=== PATIENT | female | born 1995 | race Two or more races ===

== ENCOUNTER 2020-07-11 09:22 | Emergency (ER) | payer SELFPAY ==
--- NOTE | 2020-07-11 10:54 | EDM.PDOC ---
ED HPI GENERAL MEDICAL PROBLEM - General Chief Complaint: Gastrointestinal Problem Stated Complaint: VOMITING ABDOMINAL PAIN Time Seen by Provider: 07/11/20 10:24 Source of Information: Reports: Patient History Limitations: Reports: No Limitations - History of Present Illness INITIAL COMMENTS - FREE TEXT/NARRATIVE: Patient is a 24-year-old female who presents today for nausea vomiting been present for the past few weeks. Patient presented today because she developed some right-sided flank pain. Patient denies any fever chills or urinary symptoms. Patient denies any recent travels or other complaints. - Related Data Allergies Allergy/AdvReac Type Severity Reaction Status Date / Time No Known Allergies Allergy Verified 07/11/20 11:30 Home Meds: Home Meds Ciprofloxacin [Ciprofloxacin HCl] 500 mg PO BID 7 Days #14 tab 07/11/20 [Rx] ED ROS GENERAL - Review of Systems Review Of Systems: See Below Constitutional: Reports: No Symptoms HEENT: Reports: No Symptoms Respiratory: Reports: No Symptoms Cardiovascular: Reports: No Symptoms Endocrine: Reports: No Symptoms GI/Abdominal: Reports: Nausea, Vomiting : Reports: No Symptoms Musculoskeletal: Reports: No Symptoms Skin: Reports: No Symptoms Neurological: Reports: No Symptoms Psychiatric: Reports: No Symptoms Hematologic/Lymphatic: Reports: No Symptoms Immunologic: Reports: No Symptoms ED EXAM, GENERAL - Physical Exam Exam: See Below Exam Limited By: No Limitations General Appearance: Alert, No Apparent Distress Eye Exam: Bilateral Eye: EOMI, PERRL Head: Atraumatic Respiratory/Chest: No Respiratory Distress, Lungs Clear, Normal Breath Sounds Cardiovascular: Regular Rate, Rhythm GI/Abdominal: Normal Bowel Sounds, Soft, Non-Tender Back Exam: CVA Tenderness (R) Extremities: Normal Range of Motion Neurological: Alert, Oriented, Normal Cognition, Normal Gait Course - Vital Signs Last Recorded V/S: Last Vital Signs Temp 97.4 F 07/11/20 09:55 Pulse 82 07/11/20 12:08 Resp 18 07/11/20 12:08 BP 110/71 07/11/20 12:08 Pulse Ox 96 07/11/20 12:08 - Orders/Labs/Meds Labs: Laboratory Tests 07/11/20 07/11/20 07/11/20 Range/Units 10:02 10:02 10:02 WBC 10.74 (4.0-11.0) K/uL RBC 4.25 L (4.30-5.90) M/uL Hgb 12.8 (12.0-16.0) g/dL Hct 39.4 (36.0-46.0) % MCV 92.7 (80.0-98.0) fL MCH 30.1 (27.0-32.0) pg MCHC 32.5 (31.0-37.0) g/dL RDW Std Deviation 43.8 (28.0-62.0) fl RDW Coeff of Remigio 13 (11.0-15.0) % Plt Count 356 (150-400) K/uL MPV 11.30 (7.40-12.00) fL Neut % (Auto) 86.2 H (48.0-80.0) % Lymph % (Auto) 9.8 L (16.0-40.0) % [place] % (Auto) 3.9 (0.0-15.0) % Eos % (Auto) 0.0 (0.0-7.0) % Baso % (Auto) 0.1 (0.0-1.5) % Neut # (Auto) 9.3 H (1.4-5.7) K/uL Lymph # (Auto) 1.1 (0.6-2.4) K/uL [place] # (Auto) 0.4 (0.0-0.8) K/uL Eos # (Auto) 0.0 (0.0-0.7) K/uL Baso # (Auto) 0.0 (0.0-0.1) K/uL Nucleated RBC % 0.0 /100WBC Nucleated RBCs # 0 K/uL Sodium 141 (136-145) mmol/L Potassium 4.0 (3.5-5.1) mmol/L Chloride 106 (98-107) mmol/L Carbon Dioxide 26.4 (21.0-32.0) mmol/L BUN 9 (7.0-18.0) mg/dL Creatinine 0.7 (0.6-1.0) mg/dL Est Cr Clr Drug Dosing TNP Estimated GFR (MDRD) > 60.0 ml/min Glucose 105 (74-106) mg/dL Calcium 8.8 (8.5-10.1) mg/dL Total Bilirubin 0.8 (0.2-1.0) mg/dL AST 12 L (15-37) IU/L ALT 16 (14-63) IU/L Alkaline Phosphatase 41 L (46-116) U/L Total Protein 7.5 (6.4-8.2) g/dL Albumin 4.1 (3.4-5.0) g/dL Globulin 3.4 (2.6-4.0) g/dL Albumin/Globulin Ratio 1.2 (0.9-1.6) Urine Color YELLOW Urine Appearance SLT CLOUDY Urine pH 7.5 (5.0-8.0) Ur Specific [place] 1.020 (1.001-1.035) Urine Protein 30 H (NEGATIVE) mg/dL Urine Glucose (UA) NEGATIVE (NEGATIVE) mg/dL Urine Ketones NEGATIVE (NEGATIVE) mg/dL Urine Occult Blood LARGE H (NEGATIVE) Urine Nitrite NEGATIVE (NEGATIVE) Urine Bilirubin NEGATIVE (NEGATIVE) Urine Urobilinogen 0.2 (<2.0) EU/dL Ur Leukocyte Esterase NEGATIVE (NEGATIVE) Urine RBC TOO NUMEROUS TO CT H (0-2/HPF) Urine WBC 0-4 (0-5/HPF) Ur Epithelial Cells MODERATE (NONE-FEW) Urine Bacteria 2+ H (NEGATIVE) Urine Mucus MODERATE (NONE-MOD) Urine HCG, Qual (NEGATIVE) 07/11/20 Range/Units 10:02 WBC (4.0-11.0) K/uL RBC (4.30-5.90) M/uL Hgb (12.0-16.0) g/dL Hct (36.0-46.0) % MCV (80.0-98.0) fL MCH (27.0-32.0) pg MCHC (31.0-37.0) g/dL RDW Std Deviation (28.0-62.0) fl RDW Coeff of Remigio (11.0-15.0) % Plt Count (150-400) K/uL MPV (7.40-12.00) fL Neut % (Auto) (48.0-80.0) % Lymph % (Auto) (16.0-40.0) % [place] % (Auto) (0.0-15.0) % Eos % (Auto) (0.0-7.0) % Baso % (Auto) (0.0-1.5) % Neut # (Auto) (1.4-5.7) K/uL Lymph # (Auto) (0.6-2.4) K/uL [place] # (Auto) (0.0-0.8) K/uL Eos # (Auto) (0.0-0.7) K/uL Baso # (Auto) (0.0-0.1) K/uL Nucleated RBC % /100WBC Nucleated RBCs # K/uL Sodium (136-145) mmol/L Potassium (3.5-5.1) mmol/L Chloride (98-107) mmol/L Carbon Dioxide (21.0-32.0) mmol/L BUN (7.0-18.0) mg/dL Creatinine (0.6-1.0) mg/dL Est Cr Clr Drug Dosing Estimated GFR (MDRD) ml/min Glucose (74-106) mg/dL Calcium (8.5-10.1) mg/dL Total Bilirubin (0.2-1.0) mg/dL AST (15-37) IU/L ALT (14-63) IU/L Alkaline Phosphatase (46-116) U/L Total Protein (6.4-8.2) g/dL Albumin (3.4-5.0) g/dL Globulin (2.6-4.0) g/dL Albumin/Globulin Ratio (0.9-1.6) Urine Color Urine Appearance Urine pH (5.0-8.0) Ur Specific [place] (1.001-1.035) Urine Protein (NEGATIVE) mg/dL Urine Glucose (UA) (NEGATIVE) mg/dL Urine Ketones (NEGATIVE) mg/dL Urine Occult Blood (NEGATIVE) Urine Nitrite (NEGATIVE) Urine Bilirubin (NEGATIVE) Urine Urobilinogen (<2.0) EU/dL Ur Leukocyte Esterase (NEGATIVE) Urine RBC (0-2/HPF) Urine WBC (0-5/HPF) Ur Epithelial Cells (NONE-FEW) Urine Bacteria (NEGATIVE) Urine Mucus (NONE-MOD) Urine HCG, Qual NEGATIVE (NEGATIVE) Meds: Medications Discontinued Medications Generic Name Dose Route Start Last Admin Trade Name Freq PRN Reason Stop Dose Admin Ceftriaxone Sodium 1 gm 07/11/20 11:34 07/11/20 11:58 Rocephin IVPUSH 07/11/20 11:35 1 gm ONETIME ONE Administration Sterile Water Confirm 07/11/20 11:58 07/11/20 11:58 Sterile Water For Injection Administered 07/11/20 11:59 Not Given Dose 20 mls @ as directed .ROUTE .STK-MED ONE Sterile Water 10 ml 07/11/20 11:57 07/11/20 11:58 Sterile Water For Injection INJECT 07/11/20 11:58 10 ml ONETIME ONE Administration - Re-Assessments/Exams Free Text/Narrative Re-Assessment/Exam: 07/11/20 12:19 Patient UA showed large amount of blood. Patient had right flank pain possibly could have had a kidney stone. Patient pain is resolved without any pain meds. Patient has CVA tenderness. Will send home with antibiotics and have patient follow-up with primary care physician. He had pyelonephritis versus passed kidney stone. Departure - Departure Time of Disposition: 12:20 Disposition: Home, Self-Care 01 Condition: Good Clinical Impression: Pyelonephritis - Discharge Information *PRESCRIPTION DRUG MONITORING PROGRAM REVIEWED*: Not Applicable *COPY OF PRESCRIPTION DRUG MONITORING REPORT IN PATIENT ANGELIKA: Not Applicable Prescriptions: Ciprofloxacin [Ciprofloxacin HCl] 500 mg PO BID 7 Days #14 tab Instructions: Pyelonephritis, Adult Referrals: PCP,None [Primary Care Provider] - Forms: ED Department Discharge Additional Instructions: The following information is given to patients seen in the emergency department who are being discharged to home. This information is to outline your options for follow-up care. We provide all patients seen in our emergency department with a follow-up referral. The need for follow-up, as well as the timing and circumstances, are variable depending upon the specifics of your emergency department visit. If you don't have a primary care physician on staff, we will provide you with a referral. We always advise you to contact your personal physician following an emergency department visit to inform them of the circumstance of the visit and for follow-up with them and/or the need for any referrals to a consulting specialist. The emergency department will also refer you to a specialist when appropriate. This referral assures that you have the opportunity for follow-up care with a specialist. All of these measure are taken in an effort to provide you with optimal care, which includes your follow-up. Under all circumstances we always encourage you to contact your private physician who remains a resource for coordinating your care. When calling for follow-up care, please make the office aware that this follow-up is from your recent emergency room visit. If for any reason you are refused follow-up, please contact the [facility] Emergency Department at and asked to speak to the emergency department charge nurse. Please follow up with your primary care physician. If you do not have a primary care physician, see below: [facility] [address] [place] [id number] [facility] [address] [place] [address] Primary care physician as needed. Develop any fevers chills not able to tolerate p.o. or problem urinating please return to the ED. Sepsis Event Note (ED) - Focused Exam Vital Signs: Vital Signs Temp Pulse Resp BP Pulse Ox 07/11/20 12:08 82 18 110/71 96 07/11/20 09:55 97.4 F 84 18 128/71 100 - Assessment/Plan Plan: She is a 24-year-old female who presents today for nausea vomiting. Patient also has some flank pain as well. Will send labs UA and reassess.
[2020-07-11 11:34] LABS: BLOOD UREA NITROGEN,BUN 9 mg/dL (7.0-18.0); CARBON DIOXIDE,CO2 26.4 mmol/L (21.0-32.0); CHLORIDE,CL 106 mmol/L (98-107); GLUCOSE RANDOM 105 mg/dL (74-106); SODIUM,NA 141 mmol/L (136-145)
[2020-07-11] MEDS ORDERED: cefTRIAXone 1 GM Vial IVPUSH ONE (11:34)
[2020-07-11] MEDS ORDERED: Water For Injection, Sterile 20 ML SDV INJECT ONE (11:57)
[2020-07-11] MEDS ORDERED: Water For Injection, Sterile 20 ML ONE (11:58)
== END 2020-07-11 12:32 | disposition home or self-care (01) ==
LOC: MW.ED 09:22
DX: N12 Tubulo-interstitial nephritis, not specified as acute or chronic (principal)
CPT/HCPCS: 36415; 80053; 81001; 81025; 85025; 96374; 99284; J0696; 99283

== ENCOUNTER 2020-07-11 22:59 | Emergency (ER) | payer SELFPAY ==
--- NOTE | 2020-07-11 23:11 | EDM.PDOC ---
ED HPI GENERAL MEDICAL PROBLEM - General Chief Complaint: Flank Pain Stated Complaint: SICK Time Seen by Provider: 07/11/20 23:09 Source of Information: Reports: Patient History Limitations: Reports: No Limitations - History of Present Illness INITIAL COMMENTS - FREE TEXT/NARRATIVE: 24-year-old female with no past medical history returns for right flank pain. She was seen here earlier today and was diagnosed with pyelonephritis. She was prescribed ciprofloxacin and took a dose at 8 Pm, At that time she was pain-free but her pain then came back so she came back to the ER. She has had right flank pain that is nonradiating, intermittent, moderate for 2 weeks, pain worsened tonight. She has had nonbloody vomiting that worsened today. She admits to chills, chest pain, shortness of breath. She denies fever, radiating pain, dysuria, urgency, urinary frequency. She was given 1 g Rocephin in the ER earlier today. ROS: A 10-point review of systems, other than pertinent positives and negatives as stated per HPI, is otherwise negative Past medical history: No additional pertinent history Past Surgical history: No additional pertinent history Social history: No additional pertinent history Family history: No additional pertinent history PHYSICAL EXAM General: AOx4, GCS = 15, moderate distress HEENT: dry mucous membrane Neck: supple, no meningismus, no Kernig or Brudzinski Cardiac: S1S2 RRR Respiratory: CTAB, no crackles or rales, no wheezing Abdomen: Soft, nontender, no rebound or guarding, nondistended, no pulsatile mass. Back: Right CVAT Musculoskeletal: NVI distally, no deformity Neuro: No focal deficits, CN 2 - 12 WNL. right flank Pain Score (Numeric/FACES): 10 - Related Data Allergies Allergy/AdvReac Type Severity Reaction Status Date / Time No Known Allergies Allergy Verified 07/11/20 23:09 Home Meds: Home Meds Ciprofloxacin [Ciprofloxacin HCl] 500 mg PO BID 7 Days #14 tab 07/11/20 [Rx] Acetaminophen/oxyCODONE [Percocet 325-5 MG] 1 each PO Q6H PRN #12 tab 07/12/20 [Rx] Ondansetron [Zofran ODT] 4 mg PO Q6H PRN #12 tab.dis 07/12/20 [Rx] Past Medical History - Past Health History Medical/Surgical History: Denies Medical/Surgical History Social & Family History - Family History Family Medical History: No Pertinent Family History - Caffeine Use Caffeine Use: Reports: None ED ROS GENERAL - Review of Systems Review Of Systems: See Below (see dictation) ED EXAM, GENERAL - Physical Exam Exam: See Below (see dictation) Course - Vital Signs Last Recorded V/S: Last Vital Signs Temp 96.5 F L 07/11/20 23:10 Pulse 84 07/12/20 00:25 Resp 14 07/12/20 00:25 BP 98/58 L 07/12/20 00:25 Pulse Ox 97 07/12/20 00:25 - Orders/Labs/Meds Labs: Laboratory Tests 07/11/20 07/11/20 07/11/20 Range/Units 22:23 22:23 22:23 WBC 10.06 (4.0-11.0) K/uL RBC 3.88 L (4.30-5.90) M/uL Hgb 11.7 L (12.0-16.0) g/dL Hct 36.2 (36.0-46.0) % MCV 93.3 (80.0-98.0) fL MCH 30.2 (27.0-32.0) pg MCHC 32.3 (31.0-37.0) g/dL RDW Std Deviation 44.0 (28.0-62.0) fl RDW Coeff of Remigio 13 (11.0-15.0) % Plt Count 370 (150-400) K/uL MPV 11.20 (7.40-12.00) fL Neut % (Auto) 70.7 (48.0-80.0) % Lymph % (Auto) 21.9 (16.0-40.0) % [place] % (Auto) 6.6 (0.0-15.0) % Eos % (Auto) 0.6 (0.0-7.0) % Baso % (Auto) 0.2 (0.0-1.5) % Neut # (Auto) 7.1 H (1.4-5.7) K/uL Lymph # (Auto) 2.2 (0.6-2.4) K/uL [place] # (Auto) 0.7 (0.0-0.8) K/uL Eos # (Auto) 0.1 (0.0-0.7) K/uL Baso # (Auto) 0.0 (0.0-0.1) K/uL Nucleated RBC % 0.0 /100WBC Nucleated RBCs # 0 K/uL INR 1.07 Lactate 0.8 (0.20-2.00) mmol/L Sodium (136-145) mmol/L Potassium (3.5-5.1) mmol/L Chloride (98-107) mmol/L Carbon Dioxide (21.0-32.0) mmol/L BUN (7.0-18.0) mg/dL Creatinine (0.6-1.0) mg/dL Est Cr Clr Drug Dosing Estimated GFR (MDRD) ml/min Glucose (74-106) mg/dL Calcium (8.5-10.1) mg/dL Total Bilirubin (0.2-1.0) mg/dL AST (15-37) IU/L ALT (14-63) IU/L Alkaline Phosphatase (46-116) U/L Total Protein (6.4-8.2) g/dL Albumin (3.4-5.0) g/dL Globulin (2.6-4.0) g/dL Albumin/Globulin Ratio (0.9-1.6) Lipase (73-393) U/L Urine Color Urine Appearance Urine pH (5.0-8.0) Ur Specific [place] (1.001-1.035) Urine Protein (NEGATIVE) mg/dL Urine Glucose (UA) (NEGATIVE) mg/dL Urine Ketones (NEGATIVE) mg/dL Urine Occult Blood (NEGATIVE) Urine Nitrite (NEGATIVE) Urine Bilirubin (NEGATIVE) Urine Urobilinogen (<2.0) EU/dL Ur Leukocyte Esterase (NEGATIVE) Urine RBC (0-2/HPF) Urine WBC (0-5/HPF) Ur Epithelial Cells (NONE-FEW) Urine Bacteria (NEGATIVE) Urine HCG, Qual (NEGATIVE) 07/11/20 07/11/20 07/11/20 Range/Units 22:23 23:18 23:18 WBC (4.0-11.0) K/uL RBC (4.30-5.90) M/uL Hgb (12.0-16.0) g/dL Hct (36.0-46.0) % MCV (80.0-98.0) fL MCH (27.0-32.0) pg MCHC (31.0-37.0) g/dL RDW Std Deviation (28.0-62.0) fl RDW Coeff of [place] (11.0-15.0) % Plt Count (150-400) K/uL MPV (7.40-12.00) fL Neut % (Auto) (48.0-80.0) % Lymph % (Auto) (16.0-40.0) % [place] % (Auto) (0.0-15.0) % Eos % (Auto) (0.0-7.0) % Baso % (Auto) (0.0-1.5) % Neut # (Auto) (1.4-5.7) K/uL Lymph # (Auto) (0.6-2.4) K/uL [place] # (Auto) (0.0-0.8) K/uL Eos # (Auto) (0.0-0.7) K/uL Baso # (Auto) (0.0-0.1) K/uL Nucleated RBC % /100WBC Nucleated RBCs # K/uL INR Lactate (0.20-2.00) mmol/L Sodium 142 (136-145) mmol/L Potassium 3.6 (3.5-5.1) mmol/L Chloride 107 (98-107) mmol/L Carbon Dioxide 27.1 (21.0-32.0) mmol/L BUN 7 (7.0-18.0) mg/dL Creatinine 0.9 (0.6-1.0) mg/dL Est Cr Clr Drug Dosing TNP Estimated GFR (MDRD) > 60.0 ml/min Glucose 103 (74-106) mg/dL Calcium 8.5 (8.5-10.1) mg/dL Total Bilirubin 0.7 (0.2-1.0) mg/dL AST 11 L (15-37) IU/L ALT 15 (14-63) IU/L Alkaline Phosphatase 38 L (46-116) U/L Total Protein 6.8 (6.4-8.2) g/dL Albumin 3.7 (3.4-5.0) g/dL Globulin 3.1 (2.6-4.0) g/dL Albumin/Globulin Ratio 1.2 (0.9-1.6) Lipase 122 (73-393) U/L Urine Color YELLOW Urine Appearance CLOUDY Urine pH 5.0 (5.0-8.0) Ur Specific [place] >= 1.030 (1.001-1.035) Urine Protein TRACE H (NEGATIVE) mg/dL Urine Glucose (UA) NEGATIVE (NEGATIVE) mg/dL Urine Ketones NEGATIVE (NEGATIVE) mg/dL Urine Occult Blood LARGE H (NEGATIVE) Urine Nitrite NEGATIVE (NEGATIVE) Urine Bilirubin NEGATIVE (NEGATIVE) Urine Urobilinogen 0.2 (<2.0) EU/dL Ur Leukocyte Esterase TRACE H (NEGATIVE) Urine RBC 5-10 (0-2/HPF) Urine WBC 1-4 (0-5/HPF) Ur Epithelial Cells MODERATE (NONE-FEW) Urine Bacteria 1+ H (NEGATIVE) Urine HCG, Qual NEGATIVE (NEGATIVE) Meds: Medications Discontinued Medications Generic Name Dose Route Start Last Admin Trade Name Bibi PRN Reason Stop Dose Admin Hydromorphone HCl 1 mg 07/12/20 01:02 07/12/20 01:06 Dilaudid IVPUSH 07/12/20 01:03 1 mg ONETIME ONE Administration Lactated Ringer's 1,000 mls @ 999 mls/hr 07/11/20 23:19 07/11/20 23:30 Ringers, Lactated IV 07/12/20 00:19 999 mls/hr .BOLUS ONE Administration Ketorolac Tromethamine 30 mg 07/11/20 23:19 07/11/20 23:32 Toradol IVPUSH 07/11/20 23:20 30 mg ONETIME ONE Administration Morphine Sulfate 4 mg 07/11/20 23:19 07/11/20 23:33 Morphine IVPUSH 07/11/20 23:20 4 mg ONETIME ONE Administration Ondansetron HCl 4 mg 07/11/20 23:19 07/11/20 23:31 Zofran IVPUSH 07/11/20 23:20 4 mg ONETIME ONE Administration - Re-Assessments/Exams Free Text/Narrative Re-Assessment/Exam: 07/12/20 00:56 Pain is down to 4/10, will redose 1 mg IV Dilaudid. 07/12/20 00:57 After IV fluids, Toradol, morphine, Dilaudid, Zofran in the ER, her pain improved and is currently stable for discharge. I performed a repeat exam and did not appreciate new abnormal findings. Patient exhibits normal vital signs and has a normal gait on road test. I advised the patient to return to the ER for reevaluation if symptoms worsened, including fever, worsening pain, or any other worrisome symptoms. I instructed the patient to follow up with urology on Monday. MEDICAL DECISION MAKING: I reviewed the patients past medical records, lab and radiographic findings. I discussed the case with the patient. My differential diagnosis included: Ureterolithiasis, kidney stone, pyelonephritis. CT demonstrated right mid ureteral stone at 4 mm in size with mild hydro nephrosis. UA studies did not demonstrate a convincing UTI, he demonstrated too many RBCs to count. It did not demonstrate nitrites. There was only trace leukocytes with 1-4 WBC. She had no UTI symptoms, no dysuria, urinary frequency, urgency, and no fever or chills. Her pain improved in the ER, I believe she is stable to continue taking Cipro, and to follow-up on Monday with urology. Departure - Departure Time of Disposition: 01:15 Disposition: Home, Self-Care 01 Condition: Good Clinical Impression: Ureteric colic, UTI, Urinary tract infectious disease - Discharge Information *PRESCRIPTION DRUG MONITORING PROGRAM REVIEWED*: Not Applicable *COPY OF PRESCRIPTION DRUG MONITORING REPORT IN PATIENT ANGELIKA: Not Applicable Prescriptions: Acetaminophen/oxyCODONE [Percocet 325-5 MG] 1 each PO Q6H PRN #12 tab PRN Reason: Pain (Moderate 4-6) Ondansetron [Zofran ODT] 4 mg PO Q6H PRN #12 tab.dis PRN Reason: Vomiting Instructions: Kidney Stones, [id number], Antibiotic Medicine, Adult, Urinary Tract Infection, Adult, Dietary Guidelines to Help Prevent Kidney Stones Referrals: Ezio Jean-Baptiste MD [Physician] - 07/13/20 Forms: ED Department Discharge Additional Instructions: The need for follow-up, as well as the timing and circumstances, are variable depending upon the specifics of your emergency department visit. If you don't have a primary care physician on staff, we will provide you with a referral. We always advise you to contact your personal physician following an emergency department visit to inform them of the circumstance of the visit and for follow-up with them and/or the need for any referrals to a consulting specialist. The emergency department will also refer you to a specialist when appropriate. This referral assures that you have the opportunity for follow-up care with a specialist. All of these measure are taken in an effort to provide you with optimal care, which includes your follow-up. Under all circumstances we always encourage you to contact your private physician who remains a resource for coordinating your care. When calling for follow-up care, please make the office aware that this follow-up is from your recent emergency room visit. If for any reason you are refused follow-up, please contact the [facility] Emergency Department at and asked to speak to the emergency department charge nurse. If you do not have a primary care doctor, please follow up with the clinics below within 3-5 days. [facility] [address] [place] [phone] [facility] [address] [place] [id number] Sepsis Event Note (ED) - Focused Exam Vital Signs: Vital Signs Temp Pulse Resp BP Pulse Ox 07/12/20 00:25 84 14 98/58 L 97 07/11/20 23:10 96.5 F L 88 18 91/64 99
[2020-07-11] MEDS ORDERED: Ketorolac 30 MG/ML SDV IVPUSH ONE (23:19)
[2020-07-11] MEDS ORDERED: Ondansetron 4 MG/2 ML SDV IVPUSH ONE (23:19)
[2020-07-11] MEDS ORDERED: Lactated Ringers 1,000 ML IV ONE (23:19)
[2020-07-11] MEDS ORDERED: Morphine 4 MG/ML Syringe IVPUSH ONE (23:19)
[2020-07-11 23:53] LABS: BLOOD UREA NITROGEN,BUN 7 mg/dL (7.0-18.0); CARBON DIOXIDE,CO2 27.1 mmol/L (21.0-32.0); CHLORIDE,CL 107 mmol/L (98-107); GLUCOSE RANDOM 103 mg/dL (74-106); LIPASE 122 U/L (73-393); POTASSIUM,K 3.6 mmol/L (3.5-5.1); SODIUM,NA 142 mmol/L (136-145)
--- NOTE | 2020-07-12 00:37 | CT ---
Examination: CT Abdomen/Pelvis Indication: Right flank pain Technique: Contiguous axial CT images of the abdomen and pelvis were acquired without IV contrast. Coronal and sagittal reformations generated and reviewed. Comparison: None Findings: Lack of IV contrast limits evaluation of the solid abdominal organs. Kidneys/ureters/bladder: Mild right hydronephrosis and hydroureter. In the right mid ureter (series 201, image 70), there is a 4 mm obstructing stone in the right ureter. No additional stones are identified along the course of the right ureter. The left kidney demonstrates no hydronephrosis and there are no calcifications identified along the course of the left ureter. There is a prominent phlebolith in left pelvis on axial image 121. Urinary bladder is decompressed but otherwise unremarkable. Small amount of fluid in the endometrium. Uterus otherwise unremarkable. Ovaries are symmetric in size. Liver/bile ducts/gallbladder: Focal fatty change adjacent to falciform ligament. Otherwise unremarkable. Normal gallbladder. Pancreas: Unremarkable. Spleen: Unremarkable. Adrenals: Unremarkable. Bowel/Mesentery: No obstruction. No bowel wall thickening. No free air. No free fluid. Normal appendix. Lymph nodes: No enlarged mesenteric, retroperitoneal, pelvic, or inguinal lymphadenopathy. Vasculature: No aortic aneurysm. Lower chest: Visualized lung bases are clear. Bones: No acute or aggressive appearing osseous lesions. Impression: 1. Mild right hydronephrosis with an obstructing 4 mm stone in the mid right ureter. 2. Normal appendix 1. Please note that all CT scans at this facility use dose modulation, iterative reconstruction, and/or weight-based dosing when appropriate to reduce radiation dose to as low as reasonably achievable. Dictated by Dexter Sotomayor MD @ Jul 13 2020 3:11PM Signed by Dr. Dexter Sotomayor @ Jul 13 2020 3:20PM
[2020-07-12] MEDS ORDERED: HYDROmorphone 1 MG/ML Syringe IVPUSH ONE (01:02)
== END 2020-07-12 02:37 | disposition home or self-care (01) ==
LOC: MW.ED 22:59
DX: N13.2 Hydronephrosis with renal and ureteral calculous obstruction (principal); N39.0 Urinary tract infection, site not specified
CPT/HCPCS: 36415; 74176; 80053; 81001; 81025; 83605; 83690; 85025; 85610; 96374; 96375; 99284; J1170; J1885; J2270; J2405; J7120; 99283

== ENCOUNTER 2020-07-17 10:51 | Day surgery (SDC) | payer SELFPAY ==
--- NOTE | 2020-07-17 11:06 | PCM.PREANE ---
Preanesthetic Assessment - Anesthesia/Transfusion/Family Hx Anesthesia History: Prior Anesthesia Without Reaction (Csection x 2) Family History of Anesthesia Reaction: No Transfusion History: No Prior Transfusion(s) - Review of Systems General: No Symptoms Pulmonary: No Symptoms Cardiovascular: No Symptoms Gastrointestinal: No Symptoms Neurological: No Symptoms Other: Reports: None - Physical Assessment NPO Status Date: 07/16/20 Height: 5 ft 4 in Weight: 147 kg ASA Class: 2 Mental Status: Alert & Oriented x3 Airway Class: Mallampati = 2 Dentition: Reports: Normal Dentition ROM/Head Extension: Full Lungs: Clear to Auscultation, Normal Respiratory Effort Cardiovascular: Regular Rate, Regular Rhythm - Allergies Allergies/Adverse Reactions: Allergies Allergy/AdvReac Type Severity Reaction Status Date / Time No Known Allergies Allergy Verified 07/17/20 11:40 - Blood Blood Available: No - Anesthesia Plan Pre-Op Medication Ordered: None - Acknowledgements Anesthesia Type Planned: General Anesthesia Pt an Appropriate Candidate for the Planned Anesthesia: Yes Alternatives and Risks of Anesthesia Discussed w Pt/Guardian: Yes Pt/Guardian Understands and Agrees with Anesthesia Plan: Yes PreAnesthesia Questionnaire - Past Health History Medical/Surgical History: Denies Medical/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
[2020-07-17] MEDS ORDERED: Lactated Ringers 1,000 ML IV SCH (11:15)
[2020-07-17] MEDS ORDERED: Midazolam 1 MG/ML 2 ML SDV ONE (11:22)
[2020-07-17] MEDS ORDERED: Ondansetron 4 MG/2 ML SDV ONE (11:22)
[2020-07-17] MEDS ORDERED: Lidocaine 2% 5 ML SDV ONE (11:22)
[2020-07-17] MEDS ORDERED: Propofol 200 MG/20 ML SDV ONE (11:22)
[2020-07-17] MEDS ORDERED: fentaNYL 250 MCG/5 ML SDV ONE (11:22)
[2020-07-17] MEDS ORDERED: Iopamidol 408 MG/ML 20 ML SDV ONE (11:33)
[2020-07-17] MEDS ORDERED: Glycopyrrolate 0.2 MG/ML SDV ONE (12:35)
[2020-07-17] MEDS ORDERED: Ketorolac 30 MG/ML SDV ONE (12:35)
[2020-07-17] MEDS ORDERED: ceFAZolin 1 GM Vial ONE (13:30)
[2020-07-17] MEDS ORDERED: Sodium Chloride 0.9% 20 ML ONE (13:30)
[2020-07-17] MEDS ORDERED: Acetaminophen 1,000 MG in Premix Bag 1 BAG IV PRN (13:38)
[2020-07-17] MEDS: fentaNYL 100 MCG/2 ML SDV IVPUSH PRN ×2 (14:46→14:56)
--- NOTE | 2020-07-17 15:19 | OR ---
SURGEON: Ezio Jean-Baptiste M.D. DATE OF PROCEDURE: 07/17/2020 PREOPERATIVE DIAGNOSIS: Right lower ureteral stone. POSTOPERATIVE DIAGNOSIS: Right lower ureteral stone. No stone, the stone must have passed. PROCEDURE PERFORMED: Ureteroscopy and double-J stent placement including dilating the right lower ureter. DESCRIPTION OF PROCEDURE: The patient was given general anesthesia. She was placed in dorsal lithotomy position, prepped and draped in sterile drapes. Cystourethroscopy was done with the exception of the right ureteral orifice being somewhat red and looked like it has been bruised, that gave me the suspicion that the stone might have already passed. However, a guidewire was advanced to the right ureter. The lower ureter was then dilated using a UroMax II balloon dilator to approximately 15-[place]. The rigid ureteroscope was advanced in the right lower ureter. Right above the area that was dilated, it seemed like there was a narrow part of the ureter, so that had to be dilated again using the same UroMax. With that done, the rigid ureteroscope was then advanced in the ureter and I was able to get that all the way up to the UPJ and I did not encounter any stones. With that done, because of the trauma to the ureter, I decided to put a stent in, so a 6-Br[place]ian 26 cm double-J stent was advanced over the guidewire. Position was confirmed with fluoroscopy. The string at the end of the stent was taped to the inside of the left thigh. The bladder was emptied, and the patient was moved to recovery room in good condition. PLAN: I will see her this coming week on Monday and take the stent out, that will be 4 days from now. ALVINA / RAJIV /[id number]
--- NOTE | 2020-07-17 15:20 | PCM.POSTAN ---
POST ANESTHESIA ASSESSMENT - MENTAL STATUS Mental Status: Alert - VITAL SIGNS Vital Signs: Last Vital Signs Temp 36.6 C 07/17/20 14:20 Pulse 85 07/17/20 15:06 Resp 10 L 07/17/20 15:06 BP 117/73 07/17/20 15:06 Pulse Ox 96 07/17/20 15:06 - RESPIRATORY Respiratory Status: Respiratory Rate WNL - CARDIOVASCULAR CV Status: Pulse Rate WNL - GASTROINTESTINAL GI Status: No Symptoms - POST OP HYDRATION Hydration Status: Adequate & Stable
--- NOTE | 2020-07-17 15:45 | PCM48HPAN ---
Post Anesthesia Note - EVALUATION WITHIN 48HRS OF ANESTHETIC Vital Signs in Normal Range: Yes Patient Participated in Evaluation: Yes Respiratory Function Stable: Yes Airway Patent: Yes Cardiovascular Function Stable: Yes Hydration Status Stable: Yes Pain Control Satisfactory: Yes Nausea and Vomiting Control Satisfactory: Yes Mental Status Recovered: Yes Vital Signs: Last Vital Signs Temp 36.6 C 07/17/20 14:20 Pulse 85 07/17/20 15:06 Resp 10 L 07/17/20 15:06 BP 117/73 07/17/20 15:06 Pulse Ox 96 07/17/20 15:06
--- NOTE | 2020-07-18 15:51 | CR ---
HISTORY: Stone disease. TECHNIQUE: Intraoperative fluoroscopy by urology. 24 seconds fluoroscopy time. Two images. FINDINGS: Ureteral stent. Dictated by Hamilton Amezcua MD @ Jul 18 2020 3:49PM Signed by Dr. Hamilton Amezcua @ Jul 18 2020 3:50PM
== END 2020-07-17 16:00 | disposition home or self-care (01) ==
LOC: MW.SDS 10:51
PROVIDERS: ATTEND Urology
DX: N20.1 Calculus of ureter (principal); Z01.812 Encounter for preprocedural laboratory examination; Z20.828 Contact with and (suspected) exposure to other viral communicable diseases
CPT/HCPCS: 52332; 76000; 81025; 87635; C1769; C2617; J0690; J1885; J2001; J2250; J2405; J2704; J3010; J3490; J7120; Q9966; U0002